=== PATIENT | female | born 1945 | race Caucasian/White ===

== ENCOUNTER → 2021-09-30 | Outpatient (CLI) | payer OTHER ==
[~2021-09-30] MED LIST: BENADRYL25 MG PO; CARVEDILOL6.25 MG PO; ENDOCET 10-3251 EACH PO; ETODOLAC 400 M400 M1 PO; FOLIC ACID1 MG PO; FOSAMAX40 MG PO; HYDROXYCHLOROQ200 M1 PO; LEVOTHYROXIN0.025 MG PO; LISINOPRIL5 MG PO; METHOTREXATE; MORPHINE SULFAT60 MG PO; PREDNISONE 20 M20 MG PO; PRILOSEC40 MG PO
[2021-09-30 11:39] LABS: ABSOLUTE NEUTROPHILS 3.7 thou/uL (1.4-8.2); BASOPHILS 0.8 % (0.0-2.0); EOSINOPHILS 2.4 % (0.0-3.0); HEMATOCRIT 40.1 % (37.0-47.0); HEMOGLOBIN 13.2 gm/dL (12.0-15.0); LYMPHOCYTES 22.6 % (24.0-44.0); MCH 30.5 pg (26.0-34.0); MCV 92.3 fL (80.0-100.0); MONOCYTES 9.2 % (1.0-8.0); PLATELET COUNT 190 thou/uL (150-400); RBC 4.34 mil/uL (4.20-5.00); RDW 13.8 % (10.5-14.5); WBC 5.7 thou/uL (4.0-11.0)
[2021-09-30 11:52] LABS: ALBUMIN 3.6 g/dL (3.4-5.0); CALCIUM 8.9 mg/dL (8.5-10.1); CREATININE 0.9 mg/dL (0.6-1.0); POTASSIUM 4.5 mmol/L (3.5-5.1); TOTAL BILIRUBIN 0.5 mg/dL (0.2-1.0); TOTAL PROTEIN 7.2 g/dL (6.4-8.2)
[2021-09-30 22:06] LABS: IgA 237 mg/dL (64-422); IgG 760 mg/dL (586-1602)
[2021-09-30 23:06] LABS: IgM 22 mg/dL (26-217)
[2021-10-01 09:08] LABS: HAV IgM AB (ANTI-HAV IgM) Negative (Negative); HEPATITIS B SURFACE AG Negative (Negative)
[2021-10-01 14:07] LABS: ANTI-DNA SCREEN 1 IU/mL (0-9); ANTI-RNP 0.6 AI (0.0-0.9)
== END ==
LOC: MRI 09:24
PROVIDERS: ATTEND Psychiatry & Neurology Neuromuscular Medicine
DX: M47.816 Spondylosis without myelopathy or radiculopathy, lumbar region (principal); M51.27 Other intervertebral disc displacement, lumbosacral region; M48.061 Spinal stenosis, lumbar region without neurogenic claudication; G62.9 Polyneuropathy, unspecified; M32.9 Systemic lupus erythematosus, unspecified; E66.01 Morbid (severe) obesity due to excess calories